=== PATIENT | female | born 1995 | race Hispanic/Latino ===

== ENCOUNTER 2018-08-08 10:52 | Outpatient (CLI) | payer OTHER, MEDICAID ==
[2018-08-08] MEDS ORDERED: LACTATED RINGERS 1,000 ML ONE (11:05)
[2018-08-08] MEDS ORDERED: LACTATED RINGERS 500 ML IV ONE (11:05)
[2018-08-08 11:36] VITALS: BP 133/68
--- NOTE | 2018-08-08 13:11 | Event Note ---
Date: 08/08/18 Tracing and BPP reviewed. BPP 01/20 with 2 off for practice. Pt reported good movement in the office this am. She is advised to keep apt with AMFM in the am and to continue kick counts. NST cat I at this time w/o tachycardia or variable decels which were seen in the office after IV hydration. Overall reassuring status.
--- NOTE | 2018-08-08 13:49 | Ultrasound Report ---
ULTRASOUND BIOPHYSICAL PROFILE: History: [facility] Technique: Transabdominal ultrasound with Doppler interrogation. 0 - breathing movements 2 - movements 2 - posture and tone 2 - Qualitative amniotic fluid volume 6 - TOTAL SCORE OF POSSIBLE 8 Heart Rate (bpm) 140
--- NOTE | 2018-08-11 09:20 | Ultrasound Report ---
ULTRASOUND BIOPHYSICAL PROFILE: History: BPP Comparison: None similar at this institution. Technique: Transabdominal ultrasound with Doppler interrogation. 0 - breathing movements 2 - movements 2 - posture and tone 2 - Qualitative amniotic fluid volume 6 - TOTAL SCORE OF POSSIBLE 8 Heart Rate (bpm) 140 Conclusion: Findings, as above.
== END 2018-08-08 13:34 | disposition home or self-care (01) ==
LOC: TRG 10:52
PROVIDERS: ATTEND Obstetrics & Gynecology
DX: O47.03 False labor before 37 completed weeks of gestation, third trimester (principal); Z3A.34 34 weeks gestation of pregnancy
CPT/HCPCS: 59025; 76815; 76819; 96360; J7120

== ENCOUNTER 2018-09-12 19:59 | Inpatient (IN) | payer OTHER, MEDICAID ==
--- NOTE | 2018-09-12 20:24 | History and Physical Report ---
<WILBERT TOLENTINO - Last Filed: 09/12/18 21:06> History of Present Illness Date of examination: 09/12/18 (IOL@39w GDM insulin) Date of admission: 09/12/18 19:59 History of present illness: EDC Confirmation: 09/19/2018 Gestational Age: 8 1/7 weeks Past History : 1 Term Births: 0 Premature Births: 0 Living Children: 0 Para: 0 Mult. Births: 0 Prev : 0 Prev. attempt? 0 Aborta: 0 Elect. Ab: 0 Spont. Ab: 0 Ectopics: 0 Past Medical History: Negative Past Medical History Past Medical History Anesthesia Complications: negative Anemia: negative Autoimmune Disorder: negative Bleeding Disorder: negative Blood Transfusions: negative Breast Disease: negative Diabetes: negative Heart Disease: negative Hypertension: negative Hepatitis/Liver Disease: negative Kidney Disease/UTI: negative Neurologic/Epilepsy/Migraines: negative Phlebitis/Varicosities: negative Psychiatric: negative Pulmonary Disease/Asthma: negative Thyroid Disease: negative Hospitalizations: negative Abnormal PAP: negative Family Hx: Mother - thyroid dx Social Hx: no E/S/d Infection History Hx of STD: none HIV Risk Eval: low risk Hepatitis B Risk Eval: low risk Personal hx. of genital herpes: no Partner hx. of genital herpes: no Rash, Viral, or Febrile illness since last LMP? no Varicella/Chicken Pox Status: Previous Disease Genetic History Congenital Heart Defect: Mom: no Dad: no Jhonny Disease: Mom: no Dad: no Thalassemia Mom: no Dad: no Neural Tube Defect Mom: no Dad: no Down's Syndrome Mom: no Dad: no Luis F-Sachs Mom: no Dad: no Sickle Cell Disease/Trait Mom: no Dad: no Hemophilia Mom: no Dad: no Muscular Dystrophy Mom: no Dad: no Cystic Fibrosis Mom: no Dad: no Swisher Chorea Mom: no Dad: no Mental Retardation Mom: no Dad: no Fragile X Mom: no Dad: no Other Genetic/Chromosomal Disorder Mom: no Dad: no Child w/other defect Mom: no Dad: no Active Medications (reviewed today): ONE-A-DAY WOMENS 1 CAPSULE (PRENAT-FE [id number] 3 CAPS) Current Allergies (reviewed today): No known allergies Past History - Obstetrical History Expected Date of Delivery: 09/19/18 Actual Gestation: 39 Week(s) 0 Day(s) : 1 Medications and Allergies Allergies Allergy/AdvReac Type Severity Reaction Status Date / Time No Known Allergies Allergy Unverified 08/08/18 11:04 - Physical Exam Breasts: Positive: deferred Cardiovascular: Regular rate, Normal S1, Normal S2 Lungs: Positive: Clear to auscultation Abdomen: Positive: normal appearance, soft, normal bowel sounds. Negative: distention, tenderness Genitourinary (Female): Positive: normal external genitalia Vulva: both: normal Vagina: Positive: normal moisture. Negative: discharge Cervix: Negative: lesion, discharge Uterus: Positive: normal size, normal contour Adnexa: both: normal Anus/Rectum: Positive: normal perianal skin, heme negative. Negative: rectal mass, hemorrhoids Extremities: Positive: edema Deep Tendon Reflex Grade: Normal +2 - Obstetrical FHR: category 1 Uterine Contraction Monitor Mode: External Cervical Dilatation: 1 (Cervidil to be placed by RN) Cervical Effacement Percentage: 60 station: -2 Uterine Contraction Pattern: Irregular Uterine Tone Measurement Phase: Resting Uterine Contraction Intensity: Mild Results All other labs normal. GBS POSITIVE HBsAg Screen Negative Negative *1 RPR Non Reactive Non Reactive *2 Rubella Antibodies, IgG 13.90 index Immune >0.99 *3 Non-immune <0.90 Equivocal 0.90 - 0.99 Immune >0.99 ABO Grouping A *4 Rh Factor Negative *5 Please note: Prior records for this patient's ABO / Rh type are not available for additional verification. Antibody Screen Negative Negative *6 WBC 7.4 x10E3/uL 3.4-10.8 *7 RBC 4.63 x10E6/uL 3.77-5.28 *8 Hemoglobin 12.7 g/dL 11.1-15.9 *9 Hematocrit 37.6 % 34.0-46.6 *10 MCV 81 fL 79-97 *11 MCH 27.4 pg 26.6-33.0 *12 MCHC 33.8 g/dL 31.5-35.7 *13 RDW 14.9 % 12.3-15.4 *14 Platelets 265 x10E3/uL 150-379 *15 Neutrophils 76 % Not Estab. *16 Lymphs 18 % Not Estab. *17 Monocytes 5 % Not Estab. *18 Eos 1 % Not Estab. *19 Basos 0 % Not Estab. *20 ! Immature Cells <No Reported Value> *21 Neutrophils (Absolute) 5.6 x10E3/uL 1.4-7.0 *22 Lymphs (Absolute) 1.3 x10E3/uL 0.7-3.1 *23 Monocytes(Absolute) 0.4 x10E3/uL 0.1-0.9 *24 Eos (Absolute) 0.1 x10E3/uL 0.0-0.4 *25 Baso (Absolute) 0.0 x10E3/uL 0.0-0.2 *26 ! Immature Granulocytes 0 % Not Estab. *27 ! Immature Grans (Abs) 0.0 x10E3/uL 0.0-0.1 *28 ! NRBC <No Reported Value> *29 Hematology Comments: <No Reported Value> *30 Tests: (2) Cystic Fibrosis Profile (261510) ! CF, Screen Comment: *31 RESULTS: Negative for 32 mutations analyzed Tests: (3) HB Solu + Rflx [facility] (915043) Hemoglobin (Hgb) Solubility Negative Negative *33 Tests: (4) Panel 278155 ([id number]) HIV Screen 4th Generation wRfx Non Reactive Non Reactive *34 Tests: (5) HCV Ab w/Rflx to Verification (142190) ! HCV Ab <0.1 s/co ratio 0.0-0.9 *35 Tests: (6) Comment: (244311) ! Comment: SPRCS *36 Non reactive HCV antibody screen is consistent with no HCV infection, unless recent infection is suspected or other evidence exists to indicate HCV infection. Tests: (7) HSV-2 Type Spec Ab, IgG w/Rflx (320625) ! HSV 2 IgG, Type Spec <0.91 index 0.00-0.90 *37 Negative <0.91 Equivocal 0.91 - 1.09 Positive >1.09 Note: Negative indicates no antibodies detected to HSV-2. Equivocal may suggest early infection. If clinically appropriate, retest at later date. 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 Tests: (8) Urine Culture, Routine (313858) Urine Culture, Routine Final report *38 Tests: (9) Result ([id number]) ! Result 1 No growth *39 Assessment and Plan 23yo @ 39 weeks for IOL due to Morbid obesity, GDM insulin Pt aware of POC and that IOL may take several days. Cervidil tonight Will re-eval in the AM GBS + will give 2gm Ampicillin tonight Start 1gm when active labor Will place on SS insulin Dr Flores aware All orders in EMR. <ZEKE FLORES - Last Filed: 09/12/18 21:43> History of Present Illness Date of admission: 09/12/18 19:59 Medications and Allergies Active Meds: Active Medications Dextrose (D50w (25gm) Syringe) 50 ml IV PRN PRN PRN Reason: Hypoglycemia Ephedrine Sulfate (Ephedrine Sulfate) 10 mg IV Q2M PRN PRN Reason: Hypotension Fentanyl (Sublimaze) 100 mcg IV Q2H PRN PRN Reason: Labor Pain Ampicillin Sodium (Ampicillin/Ns 1 Gm/50 Ml) 1 gm in 50 mls @ 100 mls/hr IV Q4HR TUAN; Protocol Ampicillin Sodium (Polycillin/Ns 2 Gm/100 Ml) 2 gm in 100 mls @ 100 mls/hr IV ONCE ONE; Protocol Stop: 09/12/18 21:46 Lactated Ringer's (Lactated Ringers) 1,000 mls @ 125 mls/hr IV DIRECT TUAN Oxytocin/Sodium Chloride (Pitocin/Ns 20 Unit/1000ml Drip) 20 units in 1,000 mls @ 125 mls/hr IV DIRECT TUAN Oxytocin/Sodium Chloride (Pitocin/Ns 30 Unit/500ml) 30 units in 500 mls @ 4 mls/hr IV Q30MIN TUAN; Protocol Insulin Human Regular (Humulin R) 0 units SUB-Q ACHS TUAN; Protocol Mineral Oil (Mineral Oil) 30 ml PO QHS PRN PRN Reason: Constipation Ondansetron HCl (Zofran) 4 mg IV Q8H PRN PRN Reason: Nausea And Vomiting Terbutaline Sulfate (Brethine) 0.25 mg SUB-Q ONCE PRN PRN Reason: Hyperstimulation/Hypertonicity Zolpidem Tartrate (Ambien) 10 mg PO QHS PRN PRN Reason: Insomnia - Vital Signs Vital signs: Vital Signs Temp Pulse Resp BP 97.7 F 83 18 128/66 09/12/18 21:17 09/12/18 21:17 09/12/18 21:17 09/12/18 21:17 Temp Pulse Resp BP Pulse Ox 97.7 F 83 18 128/66 09/12/18 21:17 09/12/18 21:19 09/12/18 21:17 09/12/18 21:19 Results All other labs normal. Assessment and Plan - Patient Problems (1) 39 weeks gestation of Current Visit: Yes Status: Acute (2) BMI 40.0-44.9, adult Current Visit: Yes Status: Acute (3) Gestational diabetes mellitus (GDM) in childbirth, insulin controlled Current Visit: Yes Status: Acute Plan to address problem: EFW per Ramos Tolentino 7.5# pelvis palpated adequate with limitation of body habitus. EFW~6#14oz on 08/31/2018. Serial induction explained(by Ramos Tolentino with me present). She's aware this induction may take several days and culminate in a c/s. She voiced understanding. (4) Group B Streptococcus carrier state affecting Current Visit: Yes Status: Acute (5) Rh negative, maternal Current Visit: Yes Status: Acute
[2018-09-12] MEDS ORDERED: XYLOCAINE 2% INFILTRATI ONE (20:47)
[2018-09-12] MEDS ORDERED: SUBLIMAZE IV PRN (20:47)
[2018-09-12] MEDS ORDERED: MINERAL OIL PO PRN (20:47)
[2018-09-12] MEDS ORDERED: AMPICILLIN/NS 2 GM/100 ML 2 GM/100 ML BAG IV ONE (20:47)
[2018-09-12] MEDS ORDERED: BRETHINE SUB-Q PRN (20:47)
[2018-09-12] MEDS ORDERED: CERVIDIL VG ONE (20:47)
[2018-09-12] MEDS ORDERED: D50W (25GM) Syringe IV PRN (20:50)
[2018-09-12] MEDS ORDERED: PITOCin/NS 20 UNIT/1000ML DRIP 20 UNITS/1,000 ML BAG IV SCH (21:00)
[2018-09-12] MEDS ORDERED: AMBIEN PO PRN (21:15)
[2018-09-12 21:44] LABS: Hematocrit 35.3 % (30.3-42.9); Hemoglobin 12.1 gm/dl (10.1-14.3); Mean Corpuscular HGB Conc 34 % (30-34); Mean Corpuscular Volume 83 fl (79-97); Platelet Count 308 K/mm3 (140-440); Red Blood Count 4.24 M/mm3 (3.65-5.03); Red Cell Distribution Width 13.3 % (13.2-15.2)
[2018-09-12] MEDS: LACTATED RINGERS 1,000 ML IV SCH (21:52)
[2018-09-12] MEDS ORDERED: HumuLIN R SUB-Q SCH (22:00)
[2018-09-12] MEDS ORDERED: PITOCin/NS 30 UNIT/500ML 30 UNITS/500 ML BAG IV SCH (22:00)
[2018-09-13] MEDS: LACTATED RINGERS 1,000 ML IV SCH ×4 (06:00→21:24)
--- NOTE | 2018-09-13 07:33 | Progress Note ---
Assessment and Plan Patient doing well, no complaints. Cervidil removed. pt to have breakfast and AM care. encouraged patient to eat what is severed by hospital (consistent carb diet). Will start pitocin per protocol after breakfast. All questions addressed. pt encouraged to get out of bed until breakfast is served. - Patient Problems (1) 39 weeks gestation of Current Visit: Yes Status: Acute (2) BMI 40.0-44.9, adult Current Visit: Yes Status: Acute (3) Gestational diabetes mellitus (GDM) in childbirth, insulin controlled Current Visit: Yes Status: Acute Plan to address problem: Sliding scale Consistent carb diet (4) Group B Streptococcus carrier state affecting Current Visit: Yes Status: Acute Plan to address problem: Amp loading dose infused Will start ampicillin q4h once in active labor (5) Rh negative, maternal Current Visit: Yes Status: Acute Qualifiers: Trimester: third trimester Qualified Code(s): O26.893 - Other specified related conditions, third trimester; Z67.91 - Unspecified blood type, Rh negative Plan to address problem: rhogam Subjective - Subjective Date of service: 09/13/18 Principal diagnosis: IUP @ 39+1, GDM on insulin Patient reports: movement normal, contractions (09/20), no loss of fluid, no vaginal bleeding Objective - Vital Signs Vital Signs: Vital Signs - 12hr 09/12/18 09/12/18 09/12/18 21:17 21:19 22:20 Temperature 97.7 F Pulse Rate 83 83 84 Respiratory 18 Rate Blood Pressure 128/66 134/72 Blood Pressure 128/66 [Left] O2 Sat by Pulse Oximetry 09/12/18 09/12/18 09/12/18 22:28 22:33 22:38 Temperature Pulse Rate 88 87 85 Respiratory Rate Blood Pressure Blood Pressure [Left] O2 Sat by Pulse 98 97 97 Oximetry 09/12/18 09/12/18 09/12/18 22:43 22:48 22:50 Temperature Pulse Rate 97 H 95 H 90 Respiratory Rate Blood Pressure 128/69 Blood Pressure [Left] O2 Sat by Pulse 98 96 Oximetry 09/12/18 09/12/18 09/12/18 22:53 22:58 23:03 Temperature Pulse Rate 93 H 95 H 96 H Respiratory Rate Blood Pressure Blood Pressure [Left] O2 Sat by Pulse 95 97 97 Oximetry 09/12/18 09/12/18 09/12/18 23:08 23:13 23:18 Temperature Pulse Rate 87 87 88 Respiratory Rate Blood Pressure Blood Pressure [Left] O2 Sat by Pulse 97 97 97 Oximetry 09/12/18 09/12/18 09/12/18 23:23 23:28 23:33 Temperature Pulse Rate 90 82 81 Respiratory Rate Blood Pressure Blood Pressure [Left] O2 Sat by Pulse 98 97 98 Oximetry 09/12/18 09/12/18 09/12/18 23:38 23:43 23:48 Temperature Pulse Rate 89 78 81 Respiratory Rate Blood Pressure Blood Pressure [Left] O2 Sat by Pulse 97 97 97 Oximetry 09/12/18 09/12/18 09/13/18 23:53 23:58 00:03 Temperature Pulse Rate 79 78 89 Respiratory Rate Blood Pressure Blood Pressure [Left] O2 Sat by Pulse 96 97 97 Oximetry 09/13/18 09/13/18 09/13/18 00:08 00:13 00:18 Temperature Pulse Rate 79 75 83 Respiratory Rate Blood Pressure Blood Pressure [Left] O2 Sat by Pulse 96 97 97 Oximetry 09/13/18 09/13/18 09/13/18 00:23 00:28 00:34 Temperature Pulse Rate 89 79 78 Respiratory Rate Blood Pressure Blood Pressure [Left] O2 Sat by Pulse 97 98 88 Oximetry 09/13/18 09/13/18 09/13/18 00:47 00:52 00:57 Temperature Pulse Rate 72 75 85 Respiratory Rate Blood Pressure Blood Pressure [Left] O2 Sat by Pulse 97 98 97 Oximetry 09/13/18 09/13/18 09/13/18 01:02 01:09 01:14 Temperature Pulse Rate 77 79 79 Respiratory Rate Blood Pressure Blood Pressure [Left] O2 Sat by Pulse 97 98 98 Oximetry 09/13/18 09/13/18 09/13/18 01:19 01:24 01:29 Temperature Pulse Rate 89 84 82 Respiratory Rate Blood Pressure Blood Pressure [Left] O2 Sat by Pulse 97 97 97 Oximetry 09/13/18 09/13/18 09/13/18 01:34 01:39 01:44 Temperature Pulse Rate 84 82 86 Respiratory Rate Blood Pressure Blood Pressure [Left] O2 Sat by Pulse 97 98 97 Oximetry 09/13/18 09/13/18 09/13/18 01:49 01:54 01:59 Temperature Pulse Rate 82 76 75 Respiratory Rate Blood Pressure Blood Pressure [Left] O2 Sat by Pulse 97 97 97 Oximetry 09/13/18 09/13/18 09/13/18 02:04 02:09 02:14 Temperature Pulse Rate 78 77 81 Respiratory Rate Blood Pressure Blood Pressure [Left] O2 Sat by Pulse 96 96 96 Oximetry 09/13/18 09/13/18 09/13/18 02:19 02:24 02:29 Temperature Pulse Rate 77 84 78 Respiratory Rate Blood Pressure Blood Pressure [Left] O2 Sat by Pulse 97 96 96 Oximetry 09/13/18 09/13/18 09/13/18 02:34 02:39 02:44 Temperature Pulse Rate 78 82 79 Respiratory Rate Blood Pressure Blood Pressure [Left] O2 Sat by Pulse 96 95 96 Oximetry 09/13/18 09/13/18 09/13/18 02:49 02:54 02:59 Temperature Pulse Rate 81 78 78 Respiratory Rate Blood Pressure Blood Pressure [Left] O2 Sat by Pulse 96 97 96 Oximetry 09/13/18 09/13/18 09/13/18 03:04 03:09 03:14 Temperature Pulse Rate 83 71 69 Respiratory Rate Blood Pressure Blood Pressure [Left] O2 Sat by Pulse 97 97 97 Oximetry 09/13/18 09/13/18 09/13/18 03:19 03:24 03:29 Temperature Pulse Rate 69 71 69 Respiratory Rate Blood Pressure Blood Pressure [Left] O2 Sat by Pulse 97 97 96 Oximetry 09/13/18 09/13/18 09/13/18 03:34 03:39 03:44 Temperature Pulse Rate 68 70 68 Respiratory Rate Blood Pressure Blood Pressure [Left] O2 Sat by Pulse 96 96 97 Oximetry 09/13/18 09/13/18 09/13/18 03:49 03:54 03:59 Temperature Pulse Rate 73 77 72 Respiratory Rate Blood Pressure Blood Pressure [Left] O2 Sat by Pulse 97 97 97 Oximetry 09/13/18 09/13/18 09/13/18 04:04 04:09 04:14 Temperature Pulse Rate 71 69 66 Respiratory Rate Blood Pressure Blood Pressure [Left] O2 Sat by Pulse 98 98 98 Oximetry 09/13/18 09/13/18 09/13/18 04:19 04:24 04:29 Temperature Pulse Rate 72 71 70 Respiratory Rate Blood Pressure Blood Pressure [Left] O2 Sat by Pulse 97 97 98 Oximetry 09/13/18 09/13/18 09/13/18 04:34 04:39 04:44 Temperature Pulse Rate 66 62 67 Respiratory Rate Blood Pressure Blood Pressure [Left] O2 Sat by Pulse 97 98 98 Oximetry 09/13/18 09/13/18 09/13/18 04:49 04:54 06:57 Temperature Pulse Rate 66 67 72 Respiratory Rate Blood Pressure Blood Pressure [Left] O2 Sat by Pulse 98 96 98 Oximetry 09/13/18 09/13/18 09/13/18 06:58 07:02 07:11 Temperature Pulse Rate 73 75 73 Respiratory Rate Blood Pressure 127/79 Blood Pressure [Left] O2 Sat by Pulse 98 98 Oximetry 09/13/18 09/13/18 07:16 07:21 Temperature Pulse Rate 73 86 Respiratory Rate Blood Pressure Blood Pressure [Left] O2 Sat by Pulse 97 97 Oximetry - Exam Breasts: normal Cardiovascular: Regular rate Lungs: Clear to auscultation, Normal air movement Abdomen: Present: normal appearance, soft Vulva: both: normal FHR: auscultation normal Uterine Contraction Monitor Mode: External Uterine Contraction Pattern: Regular Uterine Tone Measurement Phase: Contraction Uterine Contraction Intensity: Mild Extremities: normal Deep Tendon Reflex Grade: Normal +2 - Labs Labs: Abnormal Labs 09/12/18 09/13/18 21:30 06:16 WBC 13.0 H POC Glucose 58 L Laboratory Results - last 24 hr 09/12/18 09/12/18 09/12/18 20:47 21:30 21:30 WBC 13.0 H RBC 4.24 Hgb 12.1 Hct 35.3 MCV 83 MCH 29 MCHC 34 RDW 13.3 Plt Count 308 POC Glucose 101 Blood Type A NEGATIVE Antibody Screen Negative 09/13/18 06:16 WBC RBC Hgb Hct MCV MCH MCHC RDW Plt Count POC Glucose 58 L Blood Type Antibody Screen
[2018-09-13] MEDS ORDERED: PITOCin/NS 30 UNIT/500ML 30 UNITS/500 ML BAG IV SCH (09:00)
[2018-09-13] MEDS: AMPICILLIN/NS 1 GM/50 ML 1 GM/50 ML BAG IV SCH ×4 (09:43→21:44)
--- NOTE | 2018-09-13 12:55 | Progress Note ---
Assessment and Plan Pitocin currently @ 4, SVE unchanged from this morning; soft but posterior. Advised RN to titrate pitocin as directed. Dr. Riley consulted. - Patient Problems (1) 39 weeks gestation of Current Visit: Yes Status: Acute (2) BMI 40.0-44.9, adult Current Visit: Yes Status: Acute (3) Gestational diabetes mellitus (GDM) in childbirth, insulin controlled Current Visit: Yes Status: Acute (4) Group B Streptococcus carrier state affecting Current Visit: Yes Status: Acute (5) Rh negative, maternal Current Visit: Yes Status: Acute Qualifiers: Trimester: third trimester Qualified Code(s): O26.893 - Other specified related conditions, third trimester; Z67.91 - Unspecified blood type, Rh negative Subjective - Subjective Date of service: 09/13/18 Principal diagnosis: IUP @ 39+1, GDM on insulin Patient reports: movement normal, contractions (09/20), no loss of fluid, no vaginal bleeding Objective - Vital Signs Vital Signs: Vital Signs - 12hr 09/13/18 09/13/18 09/13/18 00:52 00:57 01:02 Temperature Pulse Rate 75 85 77 Respiratory Rate Blood Pressure O2 Sat by Pulse 98 97 97 Oximetry 09/13/18 09/13/18 09/13/18 01:09 01:14 01:19 Temperature Pulse Rate 79 79 89 Respiratory Rate Blood Pressure O2 Sat by Pulse 98 98 97 Oximetry 09/13/18 09/13/18 09/13/18 01:24 01:29 01:34 Temperature Pulse Rate 84 82 84 Respiratory Rate Blood Pressure O2 Sat by Pulse 97 97 97 Oximetry 09/13/18 09/13/18 09/13/18 01:39 01:44 01:49 Temperature Pulse Rate 82 86 82 Respiratory Rate Blood Pressure O2 Sat by Pulse 98 97 97 Oximetry 09/13/18 09/13/18 09/13/18 01:54 01:59 02:04 Temperature Pulse Rate 76 75 78 Respiratory Rate Blood Pressure O2 Sat by Pulse 97 97 96 Oximetry 09/13/18 09/13/18 09/13/18 02:09 02:14 02:19 Temperature Pulse Rate 77 81 77 Respiratory Rate Blood Pressure O2 Sat by Pulse 96 96 97 Oximetry 09/13/18 09/13/18 09/13/18 02:24 02:29 02:34 Temperature Pulse Rate 84 78 78 Respiratory Rate Blood Pressure O2 Sat by Pulse 96 96 96 Oximetry 09/13/18 09/13/18 09/13/18 02:39 02:44 02:49 Temperature Pulse Rate 82 79 81 Respiratory Rate Blood Pressure O2 Sat by Pulse 95 96 96 Oximetry 09/13/18 09/13/18 09/13/18 02:54 02:59 03:04 Temperature Pulse Rate 78 78 83 Respiratory Rate Blood Pressure O2 Sat by Pulse 97 96 97 Oximetry 09/13/18 09/13/18 09/13/18 03:09 03:14 03:19 Temperature Pulse Rate 71 69 69 Respiratory Rate Blood Pressure O2 Sat by Pulse 97 97 97 Oximetry 09/13/18 09/13/18 09/13/18 03:24 03:29 03:34 Temperature Pulse Rate 71 69 68 Respiratory Rate Blood Pressure O2 Sat by Pulse 97 96 96 Oximetry 09/13/18 09/13/18 09/13/18 03:39 03:44 03:49 Temperature Pulse Rate 70 68 73 Respiratory Rate Blood Pressure O2 Sat by Pulse 96 97 97 Oximetry 09/13/18 09/13/18 09/13/18 03:54 03:59 04:04 Temperature Pulse Rate 77 72 71 Respiratory Rate Blood Pressure O2 Sat by Pulse 97 97 98 Oximetry 09/13/18 09/13/18 09/13/18 04:09 04:14 04:19 Temperature Pulse Rate 69 66 72 Respiratory Rate Blood Pressure O2 Sat by Pulse 98 98 97 Oximetry 09/13/18 09/13/18 09/13/18 04:24 04:29 04:34 Temperature Pulse Rate 71 70 66 Respiratory Rate Blood Pressure O2 Sat by Pulse 97 98 97 Oximetry 09/13/18 09/13/18 09/13/18 04:39 04:44 04:49 Temperature Pulse Rate 62 67 66 Respiratory Rate Blood Pressure O2 Sat by Pulse 98 98 98 Oximetry 09/13/18 09/13/18 09/13/18 04:54 06:57 06:58 Temperature Pulse Rate 67 72 73 Respiratory Rate Blood Pressure 127/79 O2 Sat by Pulse 96 98 Oximetry 09/13/18 09/13/18 09/13/18 07:02 07:11 07:16 Temperature Pulse Rate 75 73 73 Respiratory Rate Blood Pressure O2 Sat by Pulse 98 98 97 Oximetry 09/13/18 09/13/18 09/13/18 07:21 09:05 09:09 Temperature 98.2 F Pulse Rate 86 77 Respiratory 18 Rate Blood Pressure 134/80 O2 Sat by Pulse 97 Oximetry 09/13/18 09/13/18 09/13/18 09:39 10:10 10:39 Temperature Pulse Rate 75 76 83 Respiratory Rate Blood Pressure 126/74 121/72 118/59 O2 Sat by Pulse Oximetry 09/13/18 09/13/18 09/13/18 11:09 11:39 12:09 Temperature Pulse Rate 68 69 67 Respiratory Rate Blood Pressure 129/73 125/70 128/78 O2 Sat by Pulse Oximetry 09/13/18 12:39 Temperature Pulse Rate 67 Respiratory Rate Blood Pressure 147/77 O2 Sat by Pulse Oximetry - Exam Breasts: normal Cardiovascular: Regular rate Lungs: Clear to auscultation Abdomen: Present: normal appearance, soft Vulva: both: normal Uterus: Present: normal FHR: auscultation normal, category 1 Uterine Contraction Monitor Mode: External Cervical Dilatation: 1.5 (posterior) Cervical Effacement Percentage: 50 station: -1 Uterine Contraction Frequency (min): 2-6 Uterine Contraction Duration: 60 Uterine Contraction Pattern: Irregular Uterine Tone Measurement Phase: Contraction Uterine Contraction Intensity: Mild - Labs Labs: Abnormal Labs 09/12/18 09/13/18 09/13/18 21:30 06:16 09:46 WBC 13.0 H POC Glucose 58 L 67 L 09/13/18 12:10 WBC POC Glucose 58 L Laboratory Results - last 24 hr 09/12/18 09/12/18 09/12/18 20:47 21:30 21:30 WBC 13.0 H RBC 4.24 Hgb 12.1 Hct 35.3 MCV 83 MCH 29 MCHC 34 RDW 13.3 Plt Count 308 POC Glucose 101 RPR Nonreactive Blood Type Antibody Screen 09/12/18 09/13/18 09/13/18 21:30 06:16 09:46 WBC RBC Hgb Hct MCV MCH MCHC RDW Plt Count POC Glucose 58 L 67 L RPR Blood Type A NEGATIVE Antibody Screen Negative 09/13/18 12:10 WBC RBC Hgb Hct MCV MCH MCHC RDW Plt Count POC Glucose 58 L RPR Blood Type Antibody Screen
--- NOTE | 2018-09-13 19:40 | Event Note ---
Date: 09/13/18 Phone report from RN patient stable pitocin increased will continue induction
[2018-09-13] MEDS: ZOFRAN IV PRN (20:27)
[2018-09-13] MEDS ORDERED: NARCAN 2 MG/2 ML IV PRN (22:23)
[2018-09-13] MEDS ORDERED: SENSORCAINE/DEXTR 0.75-8.25% INFILTRATI ONE (22:27)
[2018-09-13] MEDS ORDERED: fentaNYL-BUPIV 2 MCG/ML-0.125% 200 MCG/100 ML BAG EPIDURAL SCH (23:00)
[2018-09-14] MEDS: AMPICILLIN/NS 1 GM/50 ML 1 GM/50 ML BAG IV SCH (01:44)
[2018-09-14] MEDS: LACTATED RINGERS 1,000 ML IV SCH (02:59)
[2018-09-14] MEDS: ZOFRAN IV PRN (04:17)
--- NOTE | 2018-09-14 06:41 | Procedure Note ---
OB Delivery Note - Delivery Date of Delivery: 09/14/18 Surgeon: ROD DICKINSON Estimated blood loss: 300cc - Vaginal Delivery presentation: vertex Delivery position: OA Delivery induction: cervidil Delivery augmentation: rupture of membranes, pitocin Delivery monitor: external FHT, external uterine, internal FHT Route of delivery: forceps Indicators for instrumentation: maternal exhaustion ( Tachycardia) Delivery placenta: spontaneous Episiotomy: none Delivery laceration: 2nd degree Delivery repair: vicryl Anesthesia: epidural Delivery comments: Patient pushed for 90 minutes to +2 station FHT with tachycardia with patient c/o fatigue NICU personnel present at delivery - Infant A at 1 minute: 8 at 5 minutes: 9 Infant Gender: Male (8lbs 5oz)
[2018-09-14] MEDS ORDERED: TUCKS PAD TP ONE (10:32)
[2018-09-14] MEDS ORDERED: TYLENOL PO PRN (11:27)
[2018-09-14] MEDS ORDERED: PHENERGAN PO PRN (11:27)
[2018-09-14] MEDS ORDERED: BENADRYL PO PRN (11:27)
[2018-09-14] MEDS ORDERED: TUCKS PAD TP PRN (11:27)
[2018-09-14] MEDS ORDERED: PERCOCET 5/325 PO PRN (11:27)
[2018-09-14] MEDS ORDERED: DULCOLAX PR PRN (11:27)
[2018-09-14] MEDS ORDERED: ZOFRAN IV PRN (11:27)
[2018-09-14] MEDS ORDERED: MILK OF MAGNESIA PO PRN (11:27)
[2018-09-14] MEDS ORDERED: LANSINOH TP PRN (11:27)
[2018-09-14] MEDS: IBUPROFEN PO SCH ×3 (11:49→23:55)
[2018-09-14] MEDS ORDERED: DERMOPLAST TP PRN (11:51)
[2018-09-14] MEDS ORDERED: SODIUM CHLORIDE FLUSH SYRINGE 10 ML IV NR (12:00)
[2018-09-15 00:50] LABS: Hematocrit 28.6 % (30.3-42.9); Hemoglobin 9.9 gm/dl (10.1-14.3)
[2018-09-15] MEDS: IBUPROFEN PO SCH ×3 (06:21→18:20)
--- NOTE | 2018-09-15 07:47 | Progress Note ---
Assessment and Plan - Patient Problems (1) Forceps delivery Onset Date: ~09/14/18 Current Visit: Yes Status: Acute Plan to address problem: pt awake caring for NB VSS FF below umb Lochia small Perineum slight swelling intact H&H 03/10 drop r/t blood loss from delivery Pt is asymptomatic Doing well s/p forceps delivery P: continue pathway Advance as tolerated Subjective - Subjective Date of service: 09/15/18 (no c/o voiced) Principal diagnosis: Day # 1 s/p forcep delivery, GDM on insulin Interval history: EDC Confirmation: 09/19/2018 Gestational Age: 8 1/7 weeks Past History : 1 Term Births: 0 Premature Births: 0 Living Children: 0 Para: 0 Mult. Births: 0 Prev : 0 Prev. attempt? 0 Aborta: 0 Elect. Ab: 0 Spont. Ab: 0 Ectopics: 0 Past Medical History: Negative Past Medical History Past Medical History Anesthesia Complications: negative Anemia: negative Autoimmune Disorder: negative Bleeding Disorder: negative Blood Transfusions: negative Breast Disease: negative Diabetes: negative Heart Disease: negative Hypertension: negative Hepatitis/Liver Disease: negative Kidney Disease/UTI: negative Neurologic/Epilepsy/Migraines: negative Phlebitis/Varicosities: negative Psychiatric: negative Pulmonary Disease/Asthma: negative Thyroid Disease: negative Hospitalizations: negative Abnormal PAP: negative Family Hx: Mother - thyroid dx Social Hx: no E/S/d Infection History Hx of STD: none HIV Risk Eval: low risk Hepatitis B Risk Eval: low risk Personal hx. of genital herpes: no Partner hx. of genital herpes: no Rash, Viral, or Febrile illness since last LMP? no Varicella/Chicken Pox Status: Previous Disease Genetic History Congenital Heart Defect: Mom: no Dad: no Jhonny Disease: Mom: no Dad: no Thalassemia Mom: no Dad: no Neural Tube Defect Mom: no Dad: no Down's Syndrome Mom: no Dad: no Luis F-Sachs Mom: no Dad: no Sickle Cell Disease/Trait Mom: no Dad: no Hemophilia Mom: no Dad: no Muscular Dystrophy Mom: no Dad: no Cystic Fibrosis Mom: no Dad: no Jamie Chorea Mom: no Dad: no Mental Retardation Mom: no Dad: no Fragile X Mom: no Dad: no Other Genetic/Chromosomal Disorder Mom: no Dad: no Child w/other defect Mom: no Dad: no Active Medications (reviewed today): ONE-A-DAY WOMENS 1 CAPSULE (PRENAT-FE [id number] 3 CAPS) Current Allergies (reviewed today): No known allergies Patient reports: appetite normal, voiding normally, pain well controlled, ambulating normally : doing well (BS are unstable) Objective - Vital Signs Latest vital signs: Vital Signs Temp Pulse Resp BP BP Pulse Ox 09/15/18 06:21 18 09/15/18 00:03 97.7 F 81 20 113/70 95 09/14/18 23:55 20 09/14/18 15:21 98.4 F 66 18 127/73 98 09/14/18 12:05 98.6 F 94 H 18 141/82 97 09/14/18 08:46 98.9 F 18 145/79 09/14/18 08:43 98.9 F 97 H 18 145/79 99 09/14/18 08:14 94 H 132/71 09/14/18 07:52 90 132/72 Intake and Output 09/14/18 09/15/18 09/15/18 22:59 06:59 14:59 Intake Total 120 360 Output Total 400 Balance -280 360 Intake: Oral 120 Intake, Free Water 360 Output: Urine 400 Void 400 Other: Total, Intake Amount 120 Total, Output Amount 400 # Voids Void 1 - Exam Breasts: Present: normal Cardiovascular: Present: Regular rate Lungs: Present: Normal air movement Abdomen: Present: normal appearance, soft Uterus: Present: normal, firm, fundal height below umbilicus Extremities: Present: normal Deep Tendon Reflex Grade: Normal +2 Incision: Present: normal, dry, intact - Labs Labs: Abnormal lab results 09/14/18 09/14/18 Range/Units 13:32 23:46 Hgb 9.9 L (10.1-14.3) gm/dl Hct 28.6 L D (30.3-42.9) % POC Glucose 151 H (70-105)
[2018-09-15 18:16] VITALS: BP 119/65
--- NOTE | 2018-09-20 13:23 | Discharge Summary ---
Providers - Providers Date of Admission: 09/12/18 19:59 Date of discharge: 09/15/18 Attending physician: ZEKE DANIEL Primary care physician: ZEKE DANIEL Hospitalization Reason for admission: induction of labor, other (gestational diabetes) Delivery: forceps Laceration: 2nd degree Other procedures: none complications: none Discharge diagnosis: IUP at term delivered baby: male Hospital course: See dictated H&P. Patient was admitted underwent a normal spontaneous vaginal delivery. Her course was benign. She was afebrile throughout her stay. Her day 1 hematocrit was 28.6%. Initially patient did not want discharged late on the evening desired discharge without orthostatic symptoms and should follow up in the office in 1 week Condition at discharge: Stable Disposition: DC-01 TO HOME OR SELFCARE - Discharge Diagnoses (1) BMI 40.0-44.9, adult Status: Acute (2) Forceps delivery Status: Acute (3) Gestational diabetes mellitus (GDM) in childbirth, insulin controlled Status: Acute Plan - Provider Discharge Summary Activity: routine, no sex for 6 weeks, no heavy lifting 4 weeks Diet: routine Instructions: routine Additional instructions: [] Smoking cessation referral if applicable(refer to patient education folder for contact #) [] Refer to [facility] Booklet Call your doctor immediately for: * Fever > 100.5 * Heavy vaginal bleeding ( >1 pad per hour) * Severe persistent headache * Shortness of breath * Reddened, hot, painful area to leg or breast * Drainage or odor from incision. * - Follow up plan Follow up: ZEKE DANIEL MD [Primary Care Provider] - 7 Days Forms: [facility] [place] Discharge Summary
== END 2018-09-16 00:20 | disposition home or self-care (01) | DRG 807 ==
LOC: LD 19:59 → OB 09-14 09:10
PROVIDERS: ADMIT Obstetrics & Gynecology; ATTEND Obstetrics & Gynecology
PROC: 10D07Z3 Extraction of Products of Conception, Low Forceps, Via Natural or Artificial Opening (ICD-10-PCS; principal; 2018-09-14)
PROC: 0KQM0ZZ Repair Perineum Muscle, Open Approach (ICD-10-PCS; 2018-09-14)
PROC: 3E0P7VZ Introduction of Hormone into Female Reproductive, Via Natural or Artificial Opening (ICD-10-PCS; 2018-09-14)
PROC: 3E0R3BZ Introduction of Anesthetic Agent into Spinal Canal, Percutaneous Approach (ICD-10-PCS; 2018-09-14)
PROC: 00HU33Z Insertion of Infusion Device into Spinal Canal, Percutaneous Approach (ICD-10-PCS; 2018-09-14)
PROC: 3E0334Z Introduction of Serum, Toxoid and Vaccine into Peripheral Vein, Percutaneous Approach (ICD-10-PCS; 2018-09-15)
DX: O24.424 Gestational diabetes mellitus in childbirth, insulin controlled (principal); Z37.0 Single live birth; O26.893 Other specified pregnancy related conditions, third trimester; O75.81 Maternal exhaustion complicating labor and delivery; O99.824 Streptococcus B carrier state complicating childbirth; O70.1 Second degree perineal laceration during delivery; O99.214 Obesity complicating childbirth; E66.01 Morbid (severe) obesity due to excess calories; Z3A.39 39 weeks gestation of pregnancy; Z67.91 Unspecified blood type, Rh negative
CPT/HCPCS: 36415; 59200; 82947; 82962; 85014; 85018; 85027; 85461; 86592; 86850; 86900; 86901; G0378; A6250; J0290; J2405; J2590; J2790; J3010; J7120

== ENCOUNTER 2020-08-05 11:25 | Outpatient (CLI) | payer OTHER ==
--- NOTE | 2020-08-05 13:46 | Ultrasound Report ---
ULTRASOUND BREAST BILATERAL COMPLETE, 08/05/2020 CLINICAL INFORMATION / INDICATION: Bilat breast pain/nipple discharge, rt palp lump axilla. TECHNIQUE: Complete sonographic evaluation of all 4 quadrants and retroareolar region was performed. COMPARISON: None. FINDINGS: In the right breast only a small benign simple cyst is seen at the 10:00 position, 6 cm the nipple, measuring 7 mm. No additional significant right breast abnormalities are seen. Mild amount o f retroareolar ductal ectasia is seen. Right axilla shows no abnormalities at the site of complaint. Only a few benign. Lymph nodes are seen with large fatty hilum and thin cortices. On the left minimal benign-appearing retroareolar ductal ectasia is seen. No significant abnormalitie s are noted. A few minimal benign-appearing lymph nodes are seen in the left axilla. IMPRESSION: No sonographic evidence of malignancy. Follow up recommendation: Clinical follow-up of patient's complaints is suggested. Given the patient' s age we did not pursue mammography at this time but if there are continued worrisome clinical findin gs, this could be performed. BI-RADS Category 2: Benign. A normal or "negative" report should not preclude biopsy or follow-up of a clinically suspicious find ing. Signer Name: Sen Lund MD Signed: 08/05/2020 1:42 PM Workstation Name: [id number]
== END 2020-08-05 11:26 | disposition home or self-care (01) ==
LOC: SPVWC 11:25
PROVIDERS: ATTEND Obstetrics & Gynecology
DX: N60.01 Solitary cyst of right breast (principal); N60.41 Mammary duct ectasia of right breast; N60.42 Mammary duct ectasia of left breast